=== PATIENT | female | born 1965 | race Caucasian/White ===

== ENCOUNTER 2020-09-06 01:56 | Day surgery (SDC) | payer OTHER, SELFPAY ==
[2020-08-30 12:46] VITALS: BMI 26.1
[2020-09-06] VITALS (7 sets, daily range): BP systolic 130–156; BP diastolic 78–108; PULSE 55–87; RESP 12–18; TEMP 36.5; O2SAT 95–100
[2020-09-06] MEDS: LACTATED RINGERS 1,000 ML 30 ML IV CONT ×2 (13:08→15:32)
--- NOTE | 2020-09-06 13:24 | WPDANESEPPF ---
Anes - Initial Pre Proc Eval Procedure: Operation Date: 09/06/20 14:30 Proposed Procedures p Removal Bilateral Breast Implants - Chago Ferrer MD Date/Time: 09/06/20 13:24 Surgeon: Chago Ferrer MD Pre Op Diagnosis: Hx of breast aug. Patient Data Age: 54 Gender: F Height: 1.63 m Weight: 69 kg Allergies Allergy/AdvReac Type Severity Reaction Status Date / Time No Known Allergies Allergy Verified 08/30/20 12:45 Home Medications Medication Instructions Recorded Confirmed Type levothyroxine 125 mcg tablet 125 mcg PO DAILY 06/13/20 08/30/20 History sertraline 100 mg tablet 100 mg PO DAILY 06/13/20 08/30/20 History valacyclovir 1 gram tablet 1,000 mg PO DAILY PRN tablet 06/13/20 08/30/20 History docusate sodium 100 mg capsule 100 mg PO DAILY #14 cap 07/05/20 08/30/20 Rx hydrocodone 5 mg-acetaminophen 325 1 tablet PO Q6H PRN #15 tablet 07/05/20 08/30/20 Rx mg tablet ondansetron HCl 4 mg tablet 4 mg PO Q8H #28 tablet 07/05/20 08/30/20 Rx Patient hx anesthesia problems: post op nausea/vomiting Family hx anesthesia problems: none PMFSH Past Medical History Medical History (Updated 09/06/20 @ 13:24 by Adrian Paz DO) Anxiety Depression Hypothyroidism PONV (postoperative nausea and vomiting) Surgical History Surgical History (Updated 09/05/20 @ 12:34 by Adrian Paz DO) History of tonsillectomy Social History Social History (Updated 09/06/20 @ 13:25 by Adrian Paz DO) Years smoked: 4 Smoking status: Former smoker Tobacco type: cigarettes Smoking end date: 04/29/03 Alcohol intake: current Alcohol use details: 2 drinks/daily Substance use: current Substance use type: marijuana Other substance usage details: EDIBLES Last use: COUPLE WEEKS AGO Spiritual care concerns: No Anes - Eval Final PreProcedure Day of Procedure 09/06/20 13:24 Patient weight: overweight Heart: regular rate and rhythm Lungs: clear to auscultation and normal air movement Airway: Mallampati scale class II Neurological: alert and oriented Last oral intake: >/= 8 hours ASA classification: III Emergent: no Anesthetic plan: proceed Anesthesia type and monitoring: general LMA and standard monitoring Informed Consent: The patient's anesthetic plan and its attendant risks and benefits were discussed with the patient/family/POA. Questions were solicited and answers provided to the satisfaction of the patient/family/POA.
[2020-09-06] MEDS: SCOPOLAMINE 1.5 MG PATCH TRANSDERM (13:39)
[2020-09-06] MEDS: FAMOTIDINE 20 MG/2 ML VIAL IV PUSH (13:40)
--- NOTE | 2020-09-06 14:02 | PM.PROC ---
Procedure Note - Detailed Date of procedure: 09/06/20 Pre-op diagnosis: Hx of breast aug. Post-op diagnosis: same Procedure performed: Bilateral breast implant removal Description of procedure: Patient was marked in the preoperative holding area with her verification. Risks, benefits, alternatives were discussed in extensive detail. I wanted her to be very realistic about the risks involved as well as expectations. I was very up front honest about the cosmetic appearance after. Options following the procedure. All questions were answered to her satisfaction. Consent obtained. She was taken to the operating room placed supine on the operating room table. Anesthesia was provided by anesthesiology and prepped and draped in a standard sterile fashion. Surgical time-out was taken. 1% lidocaine and 0.25% lidocaine with epinephrine was used anesthetize as a field block. Fifteen blade used to excise the IMF scar. Dissection was continued down. The capsule was identified. These were submuscular implants. Right was ruptured / left intact. The capsules were signficantly adherent to the chest wall / muscle as such I only removed what I could without excess muscle / chest wall damage. On the right supreior / lateral aspect of the capsule there was thickening / iregularity which was removed and set with pathology. I then copiously irrigated with saline solution / bacitracin on TUR tubing for 3 L. Bilateral ear 15 mm neri drains were placed. This was sutured into place with 3-0 nylon. Nothing closed using 2-0 Vicryl followed by 3-0 Monocryl in a running subcuticular 4-0 Monocryl and tissue glue. She was taken to PACU without difficulty. All instrument sponge counts were correct at the end of the case. Anesthesia: GLMA Surgeon: Chago Ferrer MD Estimated blood loss (mL): 10 Drains: Yes (Bilateral 15 neri) Packing: No Pathology: yes (bilateral capsules) Complications: No immediate complications Condition: stable Disposition: PACU Findings: Right implant ruptured, left intact. Bilateral textured 275cc silicone implants.
--- NOTE | 2020-09-06 14:11 | WPDHPUPDATE1 ---
History and Physical Update Update Date/Time: 09/06/20 14:11 History and Physical has been reviewed, including an updated exam of the patient. There are NO changes in the patient's condition. Risks, benefits, and alternatives have been discussed and questions answered. Patient agrees to proceed with procedure.
[2020-09-06] MEDS: LIDO 1%/EPINEPHRINE 1:100,000 50 ML VIAL 30 ML INFILTRATE (14:39)
[2020-09-06] MEDS: BUPIVACAINE HCL 0.25% PF 30 ML VIAL INFILTRATE (14:40)
[2020-09-06] MEDS: fentaNYL CITRATE INJ (*CRX) 100 MCG/2 ML VIAL 25 MCG IV PUSH ×4 (15:37→16:01)
[2020-09-06] MEDS: oxyCODONE HCL (*CRX) 5 MG TAB IR PO (16:40)
== END 2020-09-06 17:45 | disposition home or self-care (01) ==
PROVIDERS: PCP Student in an Organized Health Care Education/Training Program; Visit Provider Surgery Plastic and Reconstructive Surgery
PROC: 0HPT0JZ Removal of Synthetic Substitute from Right Breast, Open Approach (ICD-10-PCS; CPT 19371; principal; 2020-09-06 14:30)
DX: T85.41XA Breakdown (mechanical) of breast prosthesis and implant, initial encounter (principal); Y83.8 Other surgical procedures as the cause of abnormal reaction of the patient, or of later complication, without mention of misadventure at the time of the procedure; E03.9 Hypothyroidism, unspecified; F41.8 Other specified anxiety disorders; Z87.891 Personal history of nicotine dependence; F12.90 Cannabis use, unspecified, uncomplicated
CPT/HCPCS: 19371; 88304; A9270; J0171; J0690; J1100; J1170; J1580; J2250; J2405; J2704; J3010; J7040; J7120

== ENCOUNTER 2020-09-06 09:16 | Outpatient (CLI) | payer OTHER, SELFPAY ==
[2020-09-06 09:52] LABS: Basophils Percent Auto 0.4 % (0.2-1.2); Eosinophils Absolute Auto 0.1 K/mm3 (0-0.3); Eosinophils Percent Auto 1.2 % (0-4.4); Hematocrit 44.4 % (37.0-47.0); Hemoglobin 15.2 g/dL (12.0-15.0); Immature Granulocyte Absolute 0.01 K/mm3 (0.00-0.031); Immature Granulocyte Percent A 0.2 % (0-0.5); Lymphocytes Absolute Auto 1.58 K/mm3 (0.9-3.2); Lymphocytes Percent Auto 28.1 % (18.3-44.2); Mean Corpuscular HGB Conc 34.2 g/dl (32-36); Mean Corpuscular Hemoglobin 32.1 pg (26-34); Mean Corpuscular Volume 93.7 fl (80-100); Mean Platelet Volume 8.7 fl (7.4-10.4); Monocytes Absolute Auto 0.4 K/mm3 (0.1-0.6); Monocytes Percent Auto 7.8 % (2.6-8.5); Neutrophils Absolute Auto 3.5 K/mm3 (1.3-6.7); Neutrophils Percent Auto 62.3 % (45.5-73.1); Platelet Count Result 256 k/mm3 (150-375); Red Blood Count 4.74 M/mm3 (4.2-5.4); Red Cell Distribution Width 12.9 % (11.5-14.5); White Blood Count 5.6 K/mm3 (4.5-10.0)
[2020-09-06 10:15] LABS: LDL Cholesterol Direct 75 mg/dL
[2020-09-06 10:34] LABS: Alanine Aminotransferase 26 U/L (4-35); Albumin Level 4.6 g/dL (3.5-5.1); Alkaline Phosphatase 77 U/L (38-126); Anion Gap 3 mmol/L (8-16); Aspartate Amino Transferase 36 U/L (14-36); Bilirubin,Total 0.6 mg/dL (0.2-1.3); Blood Urea Nitrogen 13 mg/dL (7-17); Calcium 10.2 mg/dL (8.4-10.2); Carbon Dioxide 31 mmol/L (22-30); Chloride 103 mmol/L (98-107); Cholesterol 231 mg/dL (0-200); Estimated Glomerular Filt Rate > 60; Glucose 94 mg/dL (65-105); Potassium 4.5 mmol/L (3.4-5.0); Sodium 137 mmol/L (137-145); Triglycerides 60 mg/dL (<150)
[2020-09-06 10:42] LABS: HDL Direct 127 mg/dL
== END 2020-09-06 09:17 | disposition home or self-care (01) ==
PROVIDERS: PCP Student in an Organized Health Care Education/Training Program; Visit Provider Student in an Organized Health Care Education/Training Program
DX: Z13.29 Encounter for screening for other suspected endocrine disorder (principal); Z13.228 Encounter for screening for other metabolic disorders; Z13.0 Encounter for screening for diseases of the blood and blood-forming organs and certain disorders involving the immune mechanism; Z00.00 Encounter for general adult medical examination without abnormal findings
CPT/HCPCS: 36415; 80053; 80061; 84443; 85025